=== PATIENT | male | born 1975 | race Caucasian/White ===

== ENCOUNTER 2016-10-29 18:07 | Emergency (ER) | payer MEDICAID ==
[~2016-10-29 18:07] MED LIST: ALPHAGAN P5 M1 OD; ATROPINE CARE5 ML OD; DIAMOX SEQUELS500 MG PO; HUMULIN R100 U/1 M1 SC; LEVEMIR100 U/M1 SC; LISINOPRIL10 MG PO; METFORMIN HCL1000 MG PO; PRED FORTE1 ML OD; TIMOPTIC OCUMET10 ML OD
[2016-10-29 21:26] LABS: BASOPHIL % 0.5 % (0-2); PLATELET COUNT 146 x10^3mcL (130-400); RED CELL DISTRIBUTION WIDTH 13.4 % (11.5-14.5)
[2016-10-29 22:06] LABS: CALCIUM 8.4 mg/dL (8.5-10.1); CARBON DIOXIDE 31.1 mmol/L (21-32); CHLORIDE SERUM 99 mmol/L (98-107); CREATININE SERUM 0.9 mg/dL (0.7-1.3); GFR1 > 60 mL/min; GLUCOSE SERUM 343 mg/dL (74-106); SODIUM SERUM 135 mmol/L (136-145)
[2016-10-29 22:10] LABS: ALKALINE PHOSPHATASE 131 U/L (46-116); ALT/SGPT 21 U/L (16-63); AST/SGOT 12 U/L (15-37); TOTAL PROTEIN, SERUM 6.7 g/dL (6.4-8.2)
[2016-10-29 22:11] LABS: ALBUMIN 3.1 g/dL (3.4-5.0)
[2016-10-30 00:19] VITALS: BP 123/82
== END 2016-10-30 00:19 | disposition home or self-care (01) ==
LOC: ED 18:07
PROVIDERS: Emergency Medicine
DX: H40.89 Other specified glaucoma (principal); H54.41 Blindness, right eye, normal vision left eye; E11.65 Type 2 diabetes mellitus with hyperglycemia; E11.319 Type 2 diabetes mellitus with unspecified diabetic retinopathy without macular edema
CPT/HCPCS: 36415; 82962; J1815; J3490

== ENCOUNTER 2017-11-16 11:26 | Inpatient (IN) | payer MEDICAID ==
[~2017-11-16] VITALS: Ht 160 cm; Wt 77.1 kg
[2017-11-16 12:09] LABS: CALCIUM 8.9 mg/dL (8.5-10.1); CARBON DIOXIDE 30.2 mmol/L (21-32); CHLORIDE SERUM 103 mmol/L (98-107); GFR1 > 60 mL/min; GLUCOSE SERUM 271 mg/dL (74-106); POTASSIUM SERUM 4.5 mmol/L (3.5-5.1); SODIUM SERUM 132 mmol/L (136-145)
[2017-11-16 12:14] LABS: BASOPHIL % 0.3 % (0-2); PLATELET COUNT 177 x10^3mcL (130-400); RED CELL DISTRIBUTION WIDTH 13.3 % (11.5-14.5)
[2017-11-16 14:52] LABS: MAGNESIUM 1.9 mg/dL (1.8-2.4); PHOSPHOROUS 3.4 mg/dL (2.5-4.9)
[2017-11-16 14:56] LABS: T3 TOTAL 1.04 ng/mL
[2017-11-16 15:51] LABS: CHOLESTEROL/HDL RATIO 5.7
[2017-11-16 15:57] LABS: FREE T4 1.28 ng/dL (0.76-1.46); FREE THYROXINE INDEX 3.3 ug/dL (1.4-4.5); T4(THYROXINE) 8.8 ug/dL (4.7-13.3)
[2017-11-16 16:10] LABS: microscopic required? YES; urine erythrocyte 2+ (NEGATIVE)
[2017-11-16 16:15] VITALS: BP 155/95
[2017-11-16 16:19] LABS: AMPHETAMINE QUAL UR NONE DETECTED (See below)
[2017-11-16 17:41] VITALS: Ht 160 cm; Wt 77.1 kg
[2017-11-16 20:53] VITALS: BP 146/91
[2017-11-17 06:13] LABS: BASOPHIL % 0.4 % (0-2); PLATELET COUNT 162 x10^3mcL (130-400); RED CELL DISTRIBUTION WIDTH 13.3 % (11.5-14.5)
[2017-11-17 06:19] VITALS: BP 114/72
[2017-11-17 06:19] LABS: CALCIUM 8.6 mg/dL (8.5-10.1); CARBON DIOXIDE 25.1 mmol/L (21-32); CHLORIDE SERUM 107 mmol/L (98-107); GFR1 > 60 mL/min; GLUCOSE SERUM 141 mg/dL (74-106); POTASSIUM SERUM 4.2 mmol/L (3.5-5.1); SODIUM SERUM 139 mmol/L (136-145)
[2017-11-17 08:47] VITALS: BP 109/67
[2017-11-17 12:56] VITALS: BP 111/69
[2017-11-17] MEDS ORDERED: KEFLEX500 M1 PO (15:28)
[2017-11-17] MEDS ORDERED: LAC PO (15:29)
[2017-11-17 17:40] VITALS: BP 120/81
== END 2017-11-17 19:33 | disposition home or self-care (01) | DRG 48 ==
LOC: ED 11:26 → DU 13:43
PROVIDERS: Emergency Medicine; Family Medicine
DX: G90.8 Other disorders of autonomic nervous system (principal); N17.0 Acute kidney failure with tubular necrosis; E11.65 Type 2 diabetes mellitus with hyperglycemia; N39.0 Urinary tract infection, site not specified; E87.1 Hypo-osmolality and hyponatremia; H40.9 Unspecified glaucoma; E78.5 Hyperlipidemia, unspecified; Z68.29 Body mass index [BMI] 29.0-29.9, adult; Z91.14 Patient's other noncompliance with medication regimen
CPT/HCPCS: 82962; 83880; 84439; J0696; J3010; J7030; Q0092